=== PATIENT | male | born 2000 | race Caucasian/White ===

== ENCOUNTER 2022-05-28 17:55 | Emergency (ER) | payer OTHER, SELFPAY ==
[2022-05-28] VITALS (22 sets, daily range): BP systolic 111–140; BP diastolic 54–85; PULSE 70–102; RESP 13–23; TEMP 36.6; O2SAT 96–100
--- NOTE | ~2022-05-28 | CT_ITS ---
EXAMINATION: CT brain wo con INDICATION: Headache COMPARISON: None TECHNIQUE: Standard unenhanced head CT. The dose-length product (DLP) was 605.33 mGy-cm. The mA was a djusted according to patient size. Iterative reconstruction technique was employed. FINDINGS: There is no intracranial hemorrhage, acute infarction, or abnormal mass lesion. The ventric les are normal. There is no abnormal mass effect or midline shift. The renteria-white matter differentiat ion is normal. The basal cisterns are patent. The orbits are normal. The paranasal sinuses, mastoids and calvarium are normal. IMPRESSION: 1. No acute intracranial abnormality. Reviewed, dictated and finalized at location F.
[2022-05-28 18:05] LABS: Alveolar/Arterial O2 Gradient 20.7 mmHg; Base Excess ABG -0.1 mEq/l (+/-2.0); Fractional Inspired Oxygen 21 %; HCO3 ABG 21.8 mEq/l (22.0-26.0); Oxygen Saturation ABG 97.8 % (95.0-100.0); Oxyhemoglobin 88.1 % THb (90.0-100.0); PCO2 ABG 28.9 mmHg (35.0-45.0); PO2 ABG 94.4 mmHg (80.0-100.0); Total Hemoglobin 16.1 g/dL (12.0-18.0); pH ABG 7.495 (7.350-7.450)
[2022-05-28 18:06] LABS: Device ROOM AIR; Modified Allen's Test Pass; Site Drawn RIGHT RADIAL
--- NOTE | 2022-05-28 18:12 | ECG_ITS ---
Measurements Intervals [place] Rate: 108 P: 57 HI: 135 QRS: 34 QRSD: 96 T: 23 QT: 345 QTc: 463 Interpretive Statements SINUS TACHYCARDIA POSSIBLE LEFT ATRIAL ENLARGEMENT BORDERLINE ECG NO PREVIOUS ECG AVAILABLE FOR COMPARISON Electronically Signed On 05-29-2022 15:06:59 CDT by Ritesh Desai M.D.
--- NOTE | 2022-05-28 18:24 | ED.OVERDOSE ---
HPI - Overdose General Chief Complaint: Overdose <Blaise Salter MD - Last Filed: 05/28/22 19:43> Stated Complaint: OD <Blaise Salter MD - Last Filed: 05/28/22 19:43> Time Seen by Provider: 05/28/22 17:59 <Blaise Salter MD - Last Filed: 05/28/22 19:43> History of Present Illness HPI Narrative: 21-year-old male presented to the emergency department for evaluation after an intentional overdose. Patient states he was drinking heavily this morning and took approximately 25 Xanax. Patient also reports that he took a large amount of ibuprofen. Patient states this was a suicide attempt. Patient does have a prior history of suicide attempts and hospitalization at [facility]. Patient has history of alcoholism and has been in rehab. Patient states he was only sober for approximately 4 days before drinking again. Patient told the nurse that this was an intentional attempted suicide due to him finding out that his girlfriend had cheated on him. <Blaise Salter MD - Last Filed: 05/28/22 19:43> Related Data Allergies/Adverse Reactions: Allergies Allergy/AdvReac Type Severity Reaction Status Date / Time No Known Allergies Allergy Verified 05/29/22 00:34 <Blaise Salter MD - Last Filed: 05/28/22 19:43> Review of Systems Review of Systems: CONSTITUTIONAL: Denies fever, chills, or sweats. EYES: Denies visual changes, redness, or discharge. ENT: Denies rhinorrhea, congestion, sore throat, or otalgia. CARDIOVASCULAR: Denies chest pain, palpitations, or edema. RESPIRATORY: Denies cough or dyspnea. GASTROINTESTINAL: Denies abdominal pain, nausea, vomiting, or diarrhea. GENITOURINARY: Denies dysuria or hematuria. SKIN: Denies rash or itching. MUSCULOSKELETAL: Denies back pain, joint pain, or myalgia. NEUROLOGIC: Denies headache, numbness, or weakness. PSYCHIATRIC: Suicidal <Blaise Salter MD - Last Filed: 05/28/22 19:43> Exam Narrative: APPEARANCE: Well intoxicated HEAD: normocephalic, atraumatic. EYES: PERRLA/EOMI, conjunctivae clear. NOSE: Normal no drainage NECK: Supple. No adenopathy, no masses. RESPIRATORY: Airway patent, respirations nonlabored. Clear to auscultation bilaterally, no rales, rhonchi, wheezing. CARDIOVASCULAR: Regular rate and rhythm without murmurs rubs or gallops. ABDOMINAL: Soft, nontender, nondistended, normal bowel sounds MUSCULOSKELETAL: Moves all extremities. Strength/ROM intact, No edema, No calf tenderness. NEURO: Alert. Cranial nerves II through XII intact. Grossly intact SKIN: Warm, dry. Normal Color PSYCHIATRIC: Tearful affect <Blaise Salter MD - Last Filed: 05/28/22 19:43> Course Course Emergency Course: Patient is still intoxicated with a blood alcohol level of 182. Repeat blood alcohol level is pending for 2229. Poison control consulted and is pending. Crisis counselor will be consulted once patient is medically cleared. Patient care is being signed out to Dr. Chong. <Blaise Salter MD - Last Filed: 05/28/22 19:43> Reevaluation(s) Reevaluation #1: Repeat ethanol level 65. [facility] team examined patient and patient denies intent of self-harm. I spoke with the patient and he states that he just was not thinking last night. States that he was upset because his girlfriend was cheating on him. He adamantly denies suicidal ideation or homicidal ideation. States that he feels safe going home. Advised that he follow-up closely with psychiatry. [facility] team established crisis plan and will follow up with the patient on an outpatient basis. Strict return precautions were given. Patient voiced understanding and is agreeable with plan. Discharged in stable condition. <Ana M Chong MD - Last Filed: 05/29/22 02:41> Vital Signs Vital signs: Vital Signs Temperature 97.8 F 05/28/22 18:13 Pulse Rate 85 05/28/22 18:13 Respiratory Rate 16 05/28/22 18:13 Blood Pressure 140/84 05/28/22 18:13 Pulse Oximetry 97 05/28/22 18:13 Ox
[2022-05-28 18:33] LABS: Basophils Percent Auto 0.6 % (0.2-1.2); Eosinophils Absolute Auto 0.1 K/mm3 (0-0.3); Eosinophils Percent Auto 0.8 % (0-4.4); Hematocrit 44.5 % (42.0-52.0); Hemoglobin 15.6 g/dL (14.0-18.0); Immature Granulocyte Absolute 0.03 K/mm3 (0.00-0.031); Immature Granulocyte Percent A 0.4 % (0-0.5); Lymphocytes Absolute Auto 2.49 K/mm3 (0.9-3.2); Lymphocytes Percent Auto 34.6 % (18.3-44.2); Mean Corpuscular HGB Conc 35.1 g/dl (32-36); Mean Corpuscular Hemoglobin 31.3 pg (26-34); Mean Corpuscular Volume 89.4 fl (80-100); Monocytes Absolute Auto 1.1 K/mm3 (0.1-0.6); Monocytes Percent Auto 15.4 % (2.6-8.5); Neutrophils Absolute Auto 3.5 K/mm3 (1.3-6.7); Neutrophils Percent Auto 48.2 % (45.5-73.1); Platelet Count Result 309 k/mm3 (150-375); Red Blood Count 4.98 M/mm3 (4.6-6.20); White Blood Count 7.2 K/mm3 (4.5-10.0)
[2022-05-28 18:42] LABS: Prothrombin Time 13.1 Seconds (11.1-14.7)
[2022-05-28 18:43] LABS: Partial Thromboplastin Time 28.5 SECONDS (22.3-36.8)
[2022-05-28 18:46] LABS: Acetaminophen < 10 ug/mL (10-30); Ethanol 182 mg/dL (<10); Salicylate < 1.0 mg/dL (2-20)
[2022-05-28 19:00] LABS: Alanine Aminotransferase 25 U/L (6-50); Albumin Level 5.4 g/dL (3.5-5.1); Alkaline Phosphatase 55 U/L (38-126); Anion Gap 14 mmol/L (8-16); Aspartate Amino Transferase 38 U/L (17-59); Bilirubin,Total 0.7 mg/dL (0.2-1.3); Blood Urea Nitrogen 6 mg/dL (9-20); Calcium 9.6 mg/dL (8.4-10.2); Carbon Dioxide 23 mmol/L (22-30); Chloride 107 mmol/L (98-107); Estimated CRCL calculation 96 ml/min; Estimated Glomerular Filt Rate > 60; Glucose 61 mg/dL (65-110); Magnesium 2.2 mg/dL (1.6-2.3); Potassium 4.2 mmol/L (3.4-5.0); Sodium 144 mmol/L (137-145)
[2022-05-28 19:15] LABS: SARS-CoV-2 RNA PCR Negative
[2022-05-28] MEDS: SODIUM CHLORIDE 0.9% IV 1,000 ML 999 ML IV CONT (19:53)
--- NOTE | 2022-05-28 20:10 | PC.NURSE ---
Began yelling out at nursing staff. started to rip of monitor wires and attempted to remove IV. I am not staying here. I made it all up. I didn't try to kill myself. Moved pt to another room. ERP notified and orders received. Sitter and 2 security guards present at bedside
[2022-05-28] MEDS: LORazepam INJ (*CRX) 2 MG/ML VIAL (20:13)
[2022-05-28] MEDS: HALOPERIDOL LACTATE 5 MG/ML VIAL 10 MG (20:13)
--- NOTE | 2022-05-28 20:40 | PC.NURSE ---
Pt sleeping on stretcher now. Sitter and security guards present at bedside.
--- NOTE | 2022-05-28 21:50 | PC.NURSE ---
AT 2150 ON 05/28/2022 RAKEL ANDRADE WITH [facility] CALLED AND REQUESTED AN UPDATE. THIS NURSE GAVE THE INFORMATION REQUESTED. RAKEL STATED THAT THIS CASE WAS CLOSED ON THEIR END, BUT TO CALL THEM WITH ANY QUESTIONS OR CONCERNS.
[2022-05-29 00:08] LABS: Ethanol 65 mg/dL (<10)
--- NOTE | 2022-05-29 00:40 | PC.NURSE ---
Called [facility] and pt is accepted for eval. They have 2 hours to respond.
--- NOTE | 2022-05-29 02:00 | PC.NURSE ---
Ashlyn arrives to evaluate patient.
--- NOTE | 2022-05-29 02:03 | PC.NURSE ---
Report received from ARJUN Barba. Assumed care of patient at this time. Patient moved to room 15. Ashlyn arrives to evaluate patient, in room with patient at this time.
--- NOTE | 2022-05-29 02:48 | PC.NURSE ---
Called patients Alessandra hernandez to inform her that the patient is up for discharge and is ready to go home.
== END 2022-05-29 02:58 | disposition home or self-care (01) ==
PROVIDERS: Emergency Provider Emergency Medicine
DX: T42.4X2A Poisoning by benzodiazepines, intentional self-harm, initial encounter (principal); F10.220 Alcohol dependence with intoxication, uncomplicated; Y90.6 Blood alcohol level of 120-199 mg/100 ml; Z20.822 Contact with and (suspected) exposure to COVID-19
CPT/HCPCS: 36415; 36600; 70450; 80053; 80307; 82805; 83735; 84443; 85025; 85610; 85730; 93005; 96361; 96374; 96375; 99284; C9803; J1630; J2060; J7030; U0003; U0005